=== PATIENT | female | born 1965 | race Two or more races ===

== ENCOUNTER 2017-07-02 10:25 | Outpatient (CLI) | payer OTHER ==
[~2017-07-02 10:25] MED LIST: CEFTIN500 MG PO; PERCOCET 5/3251 TAB PO; SYNTHROID75 MCG PO; [UNRECOGNIZED DRUG - OTHER] SC
== END 2017-07-02 10:33 | disposition home or self-care (01) ==
LOC: RAD 501 10:25
DX: H25.011 Cortical age-related cataract, right eye (principal); Z98.41 Cataract extraction status, right eye

== ENCOUNTER 2020-10-08 08:11 | Inpatient (IN) | payer OTHER ==
[~2020-10-08] VITALS: Ht 167.6 cm; Wt 81.6 kg
== END 2020-10-14 14:34 | disposition designated cancer center or children's hospital (05) | DRG 281 ==
LOC: ER 08:11 → SURH 21:49 → SEC-K 22:30 → SURH 10-09 04:08
PROVIDERS: ADMIT Internal Medicine; ATTEND Internal Medicine
PROC: B24BZZZ Ultrasonography of Heart with Aorta (ICD-10-PCS; principal; 2020-10-08)
PROC: 4A12X4Z Monitoring of Cardiac Electrical Activity, External Approach (ICD-10-PCS; 2020-10-08)
PROC: BW2810Z Computerized Tomography (CT Scan) of Head using Low Osmolar Contrast, Unenhanced and Enhanced (ICD-10-PCS; 2020-10-08)
PROC: 4A033R1 Measurement of Arterial Saturation, Peripheral, Percutaneous Approach (ICD-10-PCS; 2020-10-08)
PROC: 8E0ZXY6 Isolation (ICD-10-PCS; 2020-10-08)
DX: I21.4 Non-ST elevation (NSTEMI) myocardial infarction (principal); I16.9 Hypertensive crisis, unspecified; J10.1 Influenza due to other identified influenza virus with other respiratory manifestations; I48.0 Paroxysmal atrial fibrillation; E03.8 Other specified hypothyroidism; F17.210 Nicotine dependence, cigarettes, uncomplicated; Z20.822 Contact with and (suspected) exposure to COVID-19; Z79.4 Long term (current) use of insulin; E11.65 Type 2 diabetes mellitus with hyperglycemia; D69.6 Thrombocytopenia, unspecified

== ENCOUNTER 2021-02-04 08:53 | Outpatient (CLI) | payer OTHER | END 2021-02-04 09:08 | disposition home or self-care (01) | LOC: RAD 08:53 | PROVIDERS: ATTEND Internal Medicine Cardiovascular Disease | DX: I10 Essential (primary) hypertension (principal); R06.09 Other forms of dyspnea; I25.10 Atherosclerotic heart disease of native coronary artery without angina pectoris ==

== ENCOUNTER 2022-01-14 09:26 | Emergency (ER) | payer OTHER ==
[~2022-01-14] VITALS: Ht 167.6 cm; Wt 95.3 kg
[2022-01-14] MEDS ORDERED: TOPROL XL25 M1 PO (09:47)
[2022-01-14] MEDS ORDERED: COZAAR25 MG PO (09:47)
[2022-01-14] MEDS ORDERED: CRESTOR5 MG PO (09:48)
[2022-01-14] MEDS ORDERED: TRIGLIDE (09:49)
[2022-01-14] MEDS ORDERED: ECOTRIN81 MG PO (09:50)
[2022-01-14] MEDS ORDERED: HYDRODIURIL12.5 MG PO (09:50)
[2022-01-14] MEDS ORDERED: KERENDIA10 MG PO (09:50)
== END 2022-01-14 11:21 | disposition home or self-care (01) ==
LOC: ER 09:26
DX: U07.1 COVID-19 (principal); J10.1 Influenza due to other identified influenza virus with other respiratory manifestations; E11.9 Type 2 diabetes mellitus without complications; Z79.84 Long term (current) use of oral hypoglycemic drugs; I10 Essential (primary) hypertension

== ENCOUNTER 2023-12-04 17:33 | Emergency (ER) | payer OTHER ==
[~2023-12-04] VITALS: Ht 167.6 cm; Wt 104.3 kg
[~2023-12-04 17:33] MED LIST changes: +COZAAR25 MG PO; +CRESTOR5 MG PO; +ECOTRIN81 MG PO; +HYDRODIURIL12.5 MG PO; +KERENDIA10 MG PO; +TOPROL XL25 M1 PO; +TRIGLIDE
[2023-12-04] MEDS ORDERED: LOSARTAN POTAS100 MG PO (18:07)
[2023-12-04] MEDS ORDERED: KERENDIA20 MG PO (18:07)
[2023-12-04] MEDS ORDERED: SYNTHROID200 MCG PO (18:08)
[2023-12-04 19:50] LABS: HEMATOCRIT 36.7 % (36.0-45.00); HEMOGLOBIN 12.2 g/dL (12.0-15.00); MEAN CELL VOLUME 85.2 fL (80.00-100.00); MEAN CORPUSCULAR HEMOGLOBIN 28.3 pg (27.00-32.0); MEAN CORPUSCULAR HGB CONC 33.3 g/dl (32.0-36.0); PLATELET COUNT 242 K/uL (150-450)
[2023-12-04 20:02] LABS: PH,URINE 6.5 (5.0-8.0); URINE APPEARANCE Clear; URINE BILIRRUBIN Negative (NEGATIVE); URINE BLOOD Negative; URINE COLOR Yellow; URINE GLUCOSE Negative (NEGATIVE); URINE LEUKOCYTE Negative; URINE NITRATE Negative
[2023-12-04 20:06] LABS: URINE BACTERIA 1330.4 uL (0.0-1933); URINE EPITHELIAL CELLS 89.4 uL (0.0-38.8); URINE RBC 2.2 uL (0.0-20.8); URINE WBC 46.3 uL (0.0-23.2)
[2023-12-04 20:40] LABS: URINE PROTEIN 100 (NEGATIVE)
[2023-12-04 20:54] LABS: BILIRUBIN TOTAL 0.14 mg/dL (0.3-1.2); CALCIUM 9.4 mg/dL (8.5-10.1); CREATININE SERUM 0.91 mg/dL (0.55-1.02); GFR 63.06; GLOBULINA 4.6 G/DL (2.4-3.5); POTASSIUM 3.64 mEq/L (3.5-5.1); TOTAL PROTEIN 7.6 gm/dL (6.4-8.2)
[2023-12-05] MEDS ORDERED: OSELTAMIVIR PHOSPHATE 75 MG CAPSULE PO ONE ×2 (00:15→00:35)
== END 2023-12-05 01:36 | disposition home or self-care (01) ==
LOC: ER 17:34
PROVIDERS: Emergency Medicine
DX: U07.1 COVID-19 (principal); J10.1 Influenza due to other identified influenza virus with other respiratory manifestations; R53.81 Other malaise; R53.1 Weakness; I10 Essential (primary) hypertension; E11.9 Type 2 diabetes mellitus without complications

== ENCOUNTER 2024-04-24 08:36 | Outpatient (CLI) | payer OTHER ==
[~2024-04-24 08:36] MED LIST changes: +BACTROBAN OINT22 GM TP; +CLEOCIN HCL300 MG PO; +HIBICLENS118 ML TP; +KERENDIA20 MG PO; +KETO10TA2 PO; +LOSARTAN POTAS100 MG PO; +NOVOLIN 70100 UNITS/ SUBCUTANEO; +SEPTRA DS TABLE1 TAB PO; +SYNTHROID100 MCG; +SYNTHROID200 MCG PO; +ZANTAC300 MG PO
== END 2024-04-24 08:55 | disposition home or self-care (01) ==
LOC: TOM 08:36
DX: I26.99 Other pulmonary embolism without acute cor pulmonale (principal)
CPT/HCPCS: 71275

== ENCOUNTER → 2024-05-29 | Emergency (ER) | payer OTHER ==
[~2024-05-29] VITALS: Ht 162.6 cm; Wt 122.5 kg
== END | disposition left against medical advice (07) ==
LOC: ER 20:43
DX: Z53.21 Procedure and treatment not carried out due to patient leaving prior to being seen by health care provider (principal)